=== PATIENT | male | born 1975 | race Caucasian/White ===

== ENCOUNTER → 2019-02-28 | Outpatient (CLI) | payer SELFPAY ==
[~2019-02-28] MED LIST: HYDR-3583 PO; MULT-608; PRM25T PO; SULF1TAB38 PO
--- NOTE | 2019-02-28 17:55 | Diagnostic Imaging Report ---
INDICATION: Spider bite in the left upper thigh. Patient does have skin discoloration. FINDINGS: Sonographic interrogation of the area of bite in the upper left thigh was performed. No sonographic abnormality is seen. No fluid collection or mass is detected. IMPRESSION: Unremarkable soft tissue ultrasound. Dictated by: Dictated on workstation # [id number]
== END ==
LOC: RAD 14:48
PROVIDERS: ATTEND Surgery
DX: T63.301A Toxic effect of unspecified spider venom, accidental (unintentional), initial encounter (principal)
CPT/HCPCS: 76999

== ENCOUNTER → 2022-12-05 | Outpatient (CLI) | payer OTHER ==
[2022-12-05 06:42] LABS: BASOPHILS # (AUTO) 0.1 10^3/uL (0.0-0.1); BASOPHILS % (AUTO) 1 % (0-10); EOSINOPHILS # (AUTO) 0.1 10^3/uL (0.0-0.3); EOSINOPHILS % (AUTO) 1 % (0-10); HEMATOCRIT 49 % (40-54); HEMOGLOBIN 16.1 g/dL (13.3-17.7); LYMPHOCYTES % (AUTO) 25 % (12-44); MEAN CORPUSCULAR HEMOGLOBIN 28 pg (25-34); MEAN CORPUSCULAR HGB CONC 33 g/dL (32-36); MEAN CORPUSCULAR VOLUME 86 fL (80-99); MEAN PLATELET VOLUME 10.9 fL (9.0-12.2); MONOCYTES # (AUTO) 0.6 10^3/uL (0.0-1.0); MONOCYTES % (AUTO) 8 % (0-12); NEUTROPHILS # (AUTO) 5.3 10^3/uL (1.8-7.8); NEUTROPHILS % (AUTO) 66 % (42-75); PLATELET COUNT 237 10^3/uL (130-400)
[2022-12-05 06:51] LABS: ALBUMIN 4.3 GM/DL (3.2-4.5); POTASSIUM 4.4 MMOL/L (3.6-5.0)
[2022-12-05 06:52] LABS: CALCIUM 8.9 MG/DL (8.5-10.1)
[2022-12-05 06:54] LABS: TOTAL PROTEIN 7.3 GM/DL (6.4-8.2)
[2022-12-05 06:56] LABS: BILIRUBIN,TOTAL 0.4 MG/DL (0.1-1.0)
[2022-12-05 06:57] LABS: CREATININE SERUM 0.88 MG/DL (0.60-1.30)
[2022-12-05 07:01] LABS: URIC ACID 6.4 MG/DL (2.6-7.2)
== END ==
LOC: LAB 06:19
PROVIDERS: ATTEND Nurse Practitioner Family
DX: Z00.00 Encounter for general adult medical examination without abnormal findings (principal); Z12.5 Encounter for screening for malignant neoplasm of prostate; K21.9 Gastro-esophageal reflux disease without esophagitis; I10 Essential (primary) hypertension; M25.462 Effusion, left knee; R73.09 Other abnormal glucose
CPT/HCPCS: 80053; 80061; 83036; 84443; 84550; 85025; G0103; 36415; 84153